=== PATIENT | female | born 1955 | race Caucasian/White ===

== ENCOUNTER 2022-05-09 03:10 | Emergency (ER) | payer MEDICARE, OTHER ==
[~2022-05-09] VITALS: Ht 165.1 cm; Wt 67.1 kg
--- NOTE | 2022-05-09 03:13 | NUR ---
OSMAR FLORES. TAKEN TO BED 1
--- NOTE | 2022-05-09 03:14 | NUR ---
Dr. Steward examining patient.
[2022-05-09 03:15] VITALS: BP 142/92
[2022-05-09] MEDS ORDERED: NACL 0.9% 1,000 ML IV ONE ×2 (03:25→05:05)
[2022-05-09] MEDS ORDERED: ONDANSETRON 4 MG/2 ML VIAL IVP ONE (03:25)
[2022-05-09] MEDS ORDERED: MORPHINE SULFATE 4 MG/ML SYR IVP ONE ×2 (03:25→07:15)
[2022-05-09] MEDS ORDERED: MORPHINE SULFATE 4 MG/ML SYR ONE (03:29)
[2022-05-09] MEDS ORDERED: ONDANSETRON 4 MG/2 ML VIAL ONE (03:29)
[2022-05-09 03:42] LABS: BASOPHILS # (AUTO) 0.2 K/uL (0.00-0.22); EOSINOPHILS # (AUTO) 0.1 K/uL (0-0.4); EOSINOPHILS % (AUTO) 0.3 % (0.0-4.0); HEMATOCRIT 46.1 % (36-48); HEMOGLOBIN 15.9 g/dL (12.0-16.0); LYMPHOCYTES # (AUTO) 1.3 K/uL (2.5-16.5); LYMPHOCYTES % (AUTO) 6.6 % (20.5-51.1); MEAN CORPUSCULAR HEMOGLOBIN 30 pg (27-31); MEAN CORPUSCULAR HGB CONC 35 g/dL (33-37); MEAN CORPUSCULAR VOLUME 87.3 fL (80-94); NEUTROPHILS # (AUTO) 17.6 K/uL (1.8-7.7); NEUTROPHILS % (AUTO) 87.1 % (42.2-75.2); PLATELET COUNT (AUTO) 681 K/uL (140-450); RED BLOOD CELL COUNT(AUTO) 5.28 MIL/uL (4.20-5.40); RED CELL DISTRIBUTION WIDTH 13.4 % (11.6-13.7); WHITE BLOOD COUNT (AUTO) 20.2 K/uL (4.8-10.8)
[2022-05-09 03:56] LABS: ALBUMIN 3.2 g/dL (3.4-5.0); ANION GAP 17.8 (8-16); CARBON DIOXIDE 28.1 mmol/L (21-32); CREATININE 0.8 mg/dL (0.6-1.3); POTASSIUM 3.9 mmol/L (3.5-5.1); TOTAL BILIRUBIN 0.3 mg/dL (0.0-1.0)
--- NOTE | 2022-05-09 04:20 | NUR ---
Patient on monitor, A/Ox4, chest rise and fall symmetrical, no s/s of distress.
[2022-05-09] MEDS ORDERED: DICYCLOMINE 20 MG/2 ML VIAL IM ONE (05:05)
[2022-05-09 05:06] LABS: APPEARANCE,URINE CLEAR (CLEAR); BILIRUBIN,URINE 2+ (NEGATIVE); BLOOD, URINE NEGATIVE (NEGATIVE); COLOR,URINE BROWN (YELLOW); LEUKOCYTE ESTERASE ,URINE NEGATIVE (NEGATIVE); NITRITE, URINE NEGATIVE (NEGATIVE); UGLUCOSE NEGATIVE (NEGATIVE)
--- NOTE | 2022-05-09 05:15 | NUR ---
Patient on monitor, A/Ox4, chest rise and fall symmetrical, no s/s of distress.
--- NOTE | 2022-05-09 05:53 | NUR ---
Dr. Steward examining patient.
--- NOTE | 2022-05-09 06:20 | NUR ---
Patient tolerated insertion of NG-tube. NG-tube on low intermittent suction. Patient A/Ox4, chest rise and fall symmetrical, no c/o pain or s/s of discomfort
--- NOTE | 2022-05-09 06:27 | NUR ---
Patient on monitor, A/Ox4, chest rise and fall symmetrical, no s/s of distress.
--- NOTE | 2022-05-09 06:33 | NUR ---
COVID-19 swabs collected and sent to lab.
--- NOTE | 2022-05-09 07:29 | NUR ---
Change of shift report given to AM Shift Nurse Long RN. AM Shift Nurse Long RN verbalized understanding of report, no further questions.
--- NOTE | 2022-05-09 07:29 | NUR ---
Report and continuation of care received from KAVYA Gonzales. Received patient resting in semi-sandoval position; quality assurance monitor final in place HR 110 BP 169/92 RR 12 SpO2 95% on room air. Pain 4/10 at this time. Morphine 4mg IVP to be given. Bed locked in lowest position, side rails x 2. NG tube in place with int suction.
--- NOTE | 2022-05-09 07:35 | NUR ---
700cc dark red in suction canister
--- NOTE | 2022-05-09 08:00 | NUR ---
Patient to be transferred to [facility]. Is being transferred due to insurance request. Receiving facility has accepting physician and available space. ER physician has signed transfer form. Patient or responsible republican has agreed to transfer and signed form. Patient belongings inventoried and will be sent with patient. Copy of nursing notes, lab reports, EKG, Physicians Orders and X-rays to be sent with patient. Report called to KAVYA Dukes at receiving facility. [facility] ambulance service has been called for transfer. ETA is 0815.
[2022-05-09 08:02] VITALS: BP 155/91
--- NOTE | 2022-05-09 08:07 | NUR ---
[facility] at bedside. Report given to linda Rivera.
--- NOTE | 2022-05-09 08:08 | NUR ---
[facility] AT BEDSIDE FOR TRANSPORT
== END 2022-05-09 08:10 | disposition short-term general hospital (02) ==
LOC: MED 03:10
DX: U07.1 COVID-19 (principal); K56.600 Partial intestinal obstruction, unspecified as to cause; I10 Essential (primary) hypertension; E11.9 Type 2 diabetes mellitus without complications; Z79.4 Long term (current) use of insulin; Z79.899 Other long term (current) drug therapy
CPT/HCPCS: 36415; 71045; 74176; 80053; 81003; 83690; 85025; 87426; 96361; 96372; 96374; 96375; 96376; 99285; J0500; J2270; J2405; Q0092; J7030